=== PATIENT | male | born 1945 | race Caucasian/White ===

== ENCOUNTER 2022-09-06 07:40 | Emergency (ER) | payer OTHER, SELFPAY ==
[2022-09-06 07:45] VITALS: BP 184/90; PULSE 68; RESP 14; TEMP 36.2; O2SAT 99
--- NOTE | 2022-09-06 08:12 | DI.RAD.S_ITS ---
PROCEDURE: XR FOOT RT MIN 3V INDICATIONS: ? foreign body near 1st/2nd toe TECHNIQUE: 3 views of the foot were acquired. COMPARISON: None. FINDINGS: Bones: No fractures or dislocations. No suspicious bony lesions. Soft tissues: No tibiotalar joint effusion. Achilles tendon appears normal. No radiopaque foreign body identified. IMPRESSION: No radiopaque foreign body identified. No soft tissue gas. No evidence acute bony abnormality of the right foot Dictated by: Abraham Aguilar M.D. on 09/06/2022 at 8:31 Approved by: Abraham Aguilar M.D. on 09/06/2022 at 8:31
--- NOTE | 2022-09-06 08:52 | ED_ITS ---
HPI - Skin/Abscess/Foreign Bdy General Chief complaint: Skin/Abscess/Foreign Body Stated complaint: stepped on something & its in his foot Time Seen by Provider: 09/06/22 08:39 Source: patient Mode of arrival: Ambulatory Limitations: no limitations History of Present Illness HPI narrative: This is a 76-year-old male with history of hypertension, dyslipidemia the aspirin daily. Patient states he was walking today at a local hotel and stepped on a carpeted area barefoot and felt pain he states he does not have any pain when seated his noticed a small black spot and when she runs her finger over it it is painful. He is unsure if there is anything in the foot but he states he did have a foreign body in the back of his foot in the past that he was unaware of for some time until he saw podiatry and they found a small sliver of glass. Patient denies any other injuries or changes. He states he is not had issues bacterial infections in his scans but has longstanding athlete's foot. He is on a topical wash regularly and states it is fairly well-controlled there is always a small amount but it is significantly better than it has been in the past. Related Data Allergies Allergy/AdvReac Type Severity Reaction Status Date / Time [id number] Reductase AdvReac Severe Muscle Pain Verified 09/06/22 08:12 Inhibitor Review of Systems Review of Systems ROS Unobtainable: All systems reviewed & are unremarkable except as noted in HPI and below Patient History Social History Smoking Status: Former smoker Smoking Status: Former smoker alcohol intake frequency: 0-2 drinks per day Substance Use Type: does not use Exam Narrative Exam Narrative: GENERAL: Alert and oriented x three, male in mild distress. HEENT: Head normocephalic, atraumatic, EOMI, pupils reactive, face symmetric, moist mucous membranes NECK: Supple, full range of motion EXTREMITIES: Normal range of motion, no clubbing or edema. Neurovascularly intact NEUROLOGICAL: Cranial nerves II through XII grossly intact. Moving all extremities SKIN: Warm, dry, no petechiae, no rashes. Patient has a small punctate what appears to be superficial spot on the underside of the foot between the 4th and 5th metatarsal just proximal to the distal joint. I am not able to palpate any foreign body there was a very small puncture, patient has tenderness right over the site when palpated. No other injuries. He does have a little bit of skin breakdown consistent with tinea pedis between the toes particularly the 4th and 5th but not at the location of puncture. Patient does have decreased cap refill in the foot that is 4 seconds he states this normal for him. Initial Vital Signs Initial Vital Signs: Vital Signs Temperature 97.1 F L 09/06/22 07:45 Pulse Rate 68 09/06/22 07:45 Respiratory Rate 14 09/06/22 07:45 Blood Pressure 184/90 H 09/06/22 07:45 Pulse Oximetry 99 09/06/22 07:45 Oxygen Delivery Method Room Air 09/06/22 07:45 Course Orders Ordered: ED Orders 09/06/22 08:12 XR foot RT min 3V Stat Vital Signs Vital signs: Vital Signs - 8 hr 09/06/22 07:45 Temperature 97.1 F L Pulse Rate 68 Respiratory Rate 14 Blood Pressure 184/90 H Pulse Oximetry 99 Oxygen Delivery Method Room Air MDM - Skin/Abscess/Foreign Bdy MDM Narrative Medical decision making narrative: 76-year-old male with concern for foreign body in his foot after stepping barefooted on something that caused a small puncture. Patient x-ray is negative, bedside ultrasound does not show any other organic or foreign body underneath the skin or in the soft tissue. Plan for wound care and follow-up with his physician. Patient defers prescription for antibiotics at this time. Discharge Plan Departure Patient Disposition: Home Clinical Impression: Puncture wound of foot Instructions: DI for Puncture Wound Activity Restrictions/Additional Instructions: Please follow-up with your physician for recheck if the area is not healing quickly. Wound Care: Keep wound(s) clean and dry. Wash daily with soap and water only. If wound condition worsens (increased/expanding redness, developing fluid blisters, or worsening pain), either contact your doctor for an urgent re- assessment , or return to the Emergency Department. Return to the Emergency Department for any new or worsening symptoms. Return if fever greater than 100.4 Fahrenheit, increased swelling, increasing pain or worsening symptoms such as increased discharge or spreading redness. Referrals: Miscellaneous,Doctor, MD [Primary Care Provider] - Stand Alone Forms: Patient Portal/API
== END 2022-09-06 09:02 | disposition home or self-care (01) ==
PROVIDERS: Emergency Provider Emergency Medicine
DX: S91.331A Puncture wound without foreign body, right foot, initial encounter (principal); W22.8XXA Striking against or struck by other objects, initial encounter
CPT/HCPCS: 73630; 99283